=== PATIENT | female | born 1960 | race Caucasian/White ===

== ENCOUNTER 2023-09-27 05:50 | Day surgery (SDC) | payer MEDICAID ==
[~2023-09-27] VITALS: Ht 154.9 cm; Wt 78.2 kg
[2023-09-27 07:20] LABS: PROTHROMBIN TIME 10.3 SECS (9.5-12.5)
[2023-09-27] MEDS ORDERED: LIDOCAINE 1% 10 MG/ML, 20 ML MDV ONE (07:41)
[2023-09-27] MEDS ORDERED: ONDANSETRON HCL 4 MG/2 ML VIAL IVP PRN (07:45)
[2023-09-27] MEDS ORDERED: MORPHINE 4 MG INJ. 4 MG/ML VIAL IVP PRN (07:45)
[2023-09-27] MEDS ORDERED: MEPERIDINE HCL/PF 25 MG/ML DISP.SYRIN IVP PRN (07:45)
[2023-09-27] MEDS ORDERED: NACL 0.9% 1,000 ML IV SCH (07:45)
[2023-09-27] MEDS ORDERED: HYDROmorphone 1 MG/ML INJ. CARTRIDGE IVP PRN (07:45)
[2023-09-27 10:07] VITALS: BP_SYST 178; PULSE 71; RESP 19; TEMP 97.8; O2SAT 98
== END 2023-09-27 10:08 | disposition home or self-care (01) ==
LOC: SMU 05:50 → SDS 05:50
PROVIDERS: ATTEND Podiatrist Primary Podiatric Medicine
DX: E10.621 Type 1 diabetes mellitus with foot ulcer (principal); L89.893 Pressure ulcer of other site, stage 3; M86.8X7 Other osteomyelitis, ankle and foot; E10.52 Type 1 diabetes mellitus with diabetic peripheral angiopathy with gangrene; I10 Essential (primary) hypertension; Z91.018 Allergy to other foods; Z98.890 Other specified postprocedural states
CPT/HCPCS: 28825; 85610; 85730; 87081; 36415; 71045; 82948; 88305; 88311; J3490; J3465; J3010; J7030; J2001